=== PATIENT | female | born 1985 | race Caucasian/White ===

== ENCOUNTER 2021-11-08 02:41 | Emergency (ER) | payer OTHER ==
[~2021-11-08 02:41] MED LIST: KEFLEX CAP 500500 MG PO; LODINE CAP 300300 MG PO
[2021-11-08 04:17] LABS: HEMOGLOBIN 13.9 gm/dl (12.3-15.3); RED BLOOD COUNT 4.6 M/UL (4.00-5.10); WHITE BLOOD COUNT 17.5 K/UL (4.5-11.0)
[2021-11-08 04:33] LABS: BUN/CREATININE RATIO 37 (0-10)
== END 2021-11-08 05:41 | disposition home or self-care (01) ==
LOC: ER1 02:41
PROVIDERS: Physician Assistant
DX: R20.9 Unspecified disturbances of skin sensation (principal); F17.200 Nicotine dependence, unspecified, uncomplicated; Z88.0 Allergy status to penicillin
CPT/HCPCS: 80048; 85025; 93005; 99284

== ENCOUNTER 2022-03-30 11:16 | Emergency (ER) | payer OTHER ==
[2022-03-30 12:50] LABS: RED BLOOD COUNT 4.94 M/UL (4.00-5.10); WHITE BLOOD COUNT 12.8 K/UL (4.5-11.0)
[2022-03-30 13:32] LABS: BUN/CREATININE RATIO 27 (0-10)
[2022-03-30] MEDS ORDERED: ZANAFLEX4 MG PO (15:25)
== END 2022-03-30 15:45 | disposition home or self-care (01) ==
LOC: ER1 11:16
PROVIDERS: Physician Assistant
DX: G43.909 Migraine, unspecified, not intractable, without status migrainosus (principal); I10 Essential (primary) hypertension; F17.210 Nicotine dependence, cigarettes, uncomplicated; Z90.49 Acquired absence of other specified parts of digestive tract
CPT/HCPCS: 80053; 85025; 85652; 86140; 96374; 96375; 99283; J1200; J1885; J2765; J3475